=== PATIENT | male | born 1955 | race American Indian/Alaskan Native ===

== ENCOUNTER 2017-12-06 16:58 | Emergency (ER) | payer SELFPAY ==
[~2017-12-06 16:58] MED LIST: Sodium Chloride 0.9% 10 ML Syringe FLUSH PRN
[2017-12-06 17:35] LABS: CHLORIDE,CL 106 mmol/L (101-111); SODIUM,NA 139 mmol/L (135-145)
[2017-12-06] MEDS ORDERED: Iopamidol 755 Mg/ML 100 ML Bottle IVPUSH ONE (17:46)
[2017-12-06] MEDS ORDERED: Sodium Chloride 0.9% 500 ML IV SCH (18:00)
--- NOTE | 2017-12-06 18:54 | EDM.PDOC ---
"Scribed by Merna Adam 12/06/17 2170 for Alejandro Viramontes MD <Danielle Laurent - Last Filed: 12/07/17 02:31> ED HPI GENERAL MEDICAL PROBLEM - General Chief Complaint: Cardiovascular Problem Stated Complaint: medical per ER nurse. In by amb Time Seen by Provider: 12/06/17 17:00 - Related Data Allergies Allergy/AdvReac Type Severity Reaction Status Date / Time No Known Allergies Allergy Verified 12/06/17 16:59 Home Meds: Home Meds . [Unable to Verify Home Med List] 12/06/17 [History] Course - Vital Signs Last Recorded V/S: Last Vital Signs Temp 37.2 C 12/06/17 17:01 Pulse 72 12/06/17 17:01 Resp 16 12/06/17 17:01 BP 126/81 12/06/17 17:01 Pulse Ox 98 12/06/17 17:01 - Orders/Labs/Meds Orders: Active Orders 24 hr Category Date Time Status EKG 12 Lead [EKG Documentation Completion] [RC] STAT Care 12/06/17 16:59 Active Peripheral IV Care [RC] . DIRECTED Care 12/06/17 16:59 Active Peripheral IV Insertion Adult [OM.PC] Stat Oth 12/06/17 16:59 Ordered Labs: Laboratory Tests 12/06/17 12/06/17 12/06/17 Range/Units 17:09 17:09 17:09 WBC 7.3 (5.0-10.0) 10^3/uL RBC 4.88 (4.6-6.2) 10^6/uL Hgb 14.4 (14.0-18.0) g/dL Hct 42.0 (40.0-54.0) % MCV 86.1 (80-100) fL MCH 29.5 (27.0-34.0) pg MCHC 34.3 (33.0-35.0) g/dL Plt Count 197 (150-450) 10^3/uL Neut % (Auto) 70.3 (42.2-75.2) % Lymph % (Auto) 16.7 L (20.5-50.1) % [place] % (Auto) 10.2 H (2-8) % Eos % (Auto) 2.1 (1.0-3.0) % Baso % (Auto) 0.7 (0.0-1.0) % PT 9.8 (9.0-12.0) SEC INR 1.0 (0.9-1.2) APTT 28.2 (22.0-34.0) SEC D-Dimer, Quantitative 1120 H (0-400) ng/mL Sodium 139 (135-145) mmol/L Potassium 3.9 (3.6-5.0) mmol/L Chloride 106 (101-111) mmol/L Carbon Dioxide 23.0 (21.0-31.0) mmol/L Anion Gap 13.9 BUN 19 H (7-18) mg/dL Creatinine 1.3 (0.6-1.3) mg/dL Est Cr Clr Drug Dosing 54.53 mL/min Estimated GFR (MDRD) 56 BUN/Creatinine Ratio 14.61 Glucose 122 H (74-105) mg/dL Calcium 9.3 (8.4-10.2) mg/dl Total Bilirubin 0.9 (0.2-1.0) mg/dL AST 30 (10-42) IU/L ALT 25 (10-60) IU/L Alkaline Phosphatase 69 (42-121) IU/L Troponin I < 0.02 (0.00-0.02) ng/ml B-Natriuretic Peptide 40 (0-100) pg/ml Total Protein 7.6 (6.7-8.2) g/dl Albumin 4.5 (3.2-5.5) g/dl Globulin 3.1 Albumin/Globulin Ratio 1.45 Meds: Medications Discontinued Medications Generic Name Dose Route Start Last Admin Trade Name Freq PRN Reason Stop Dose Admin Sodium Chloride 500 mls @ 500 mls/hr 12/06/17 18:00 12/06/17 19:38 Normal Saline IV 500 mls/hr .BOLUS NIKKIE Administration Iopamidol 100 ml 12/06/17 17:46 12/06/17 17:55 Isovue-370 (76%) IVPUSH 12/06/17 17:47 100 ml ONETIME ONE Administration Sodium Chloride 10 ml 12/06/17 16:58 12/06/17 17:14 Saline Flush FLUSH 10 ml ASDIRECTED PRN Administration Keep Vein Open - Re-Assessments/Exams Free Text/Narrative Re-Assessment/Exam: 12/06/17 1900 I took patient care over from Dr. Viramontes at this time. Discussed with the patient the need to transfer him to a higher level of care for cardiology follow up. He states agreement and understanding. Dr. Ulloa at [facility] in agreed to accept the patient for transfer. Departure - Departure Time of Disposition: 20:21 Disposition: DC/Tfer to Acute Hospital 02 Reason for Transfer *Q: Other Condition: Fair Clinical Impression: Acute coronary syndrome Syncope Qualifiers: Syncope type: unspecified Qualified Code(s): R55 - Syncope and collapse Chest pain Qualifiers: Chest pain type: unspecified Qualified Code(s): R07.9 - Chest pain, unspecified Aortic aneurysm Qualifiers: Aortic location: thoracic aorta Presence of rupture: without rupture Qualified Code(s): I71.2 - Thoracic aortic aneurysm, without rupture Referrals: PCP,None [Primary Care Provider] - Forms: ED Department Discharge, Interfacility Transfer EMTALA - My Orders Last 24 Hours: My Active Orders 12/06/17 16:59 EKG 12 Lead [EKG Documentation Completion] [RC] STAT Peripheral IV Care [RC] . DIRECTED Peripheral IV Insertion Adult [OM.PC] Stat - Assessment/Plan Last 24 Hours: My Active Orders 12/06/17 16:59 EKG 12 Lead [EKG Documentation Completion] [RC] STAT Peripheral IV Care [RC] . DIRECTED Peripheral IV Insertion Adult [OM.PC] Stat <Alejandro Viramontes - Last Filed: 12/07/17 09:15> ED HPI GENERAL MEDICAL PROBLEM - General Source of Information: Reports: Patient, EMS, EMS Notes Reviewed, RN, RN Notes Reviewed History Limitations: Reports: No Limitations - History of Present Illness INITIAL COMMENTS - FREE TEXT/NARRATIVE: Arrives by ambulance with c/o chest pain that began this morning and was recurrent throughout the day. Pt drove here from [facility] recently to attend his brother's . This evening the pain returned and was accompanied by mild shortness of breath, so he took a single Nitro. 0.4mg SL and promptly had a syncopal episode. Pt currently feels very mild pain in the left chest. Denies cough, fever, chills, N/V, or radiating pain. Onset: Today Duration: Intermittent, Waxing/Waning Location: Reports: Chest Quality: Reports: Ache Severity: Severe Improves with: Reports: None Worsens with: Reports: None Associated Symptoms: Reports: No Other Symptoms Treatments HUMAN RESOURCE CONSULTANT: Reports: Aspirin, EKG, IV/IO, Nitroglycerin Past Medical History Cardiovascular History: Reports: CAD, Heart Failure, Other (See Below) (aortic valve disease. Aorticdissection.) - Past Surgical History Cardiovascular Surgical History: Reports: Valve Replacement (aortic), Other ( See Below) ([id number]. Aortic dissection repair.) Social & Family History - Family History Cardiac: Reports: CAD - Tobacco Use Smoking Status *Q: Current Some Day Smoker Tobacco Use Within Last Twelve Months: Cigarettes - Alcohol Use Alcohol Use History: No - Recreational Drug Use Recreational Drug Use: No - Living Situation & Occupation Living situation: Reports: with Family ED ROS GENERAL - Review of Systems Review Of Systems: ROS reveals no pertinent complaints other than HPI. ED EXAM, GENERAL - Physical Exam Exam: See Below Exam Limited By: No Limitations General Appearance: Alert, WD/WN, No Apparent Distress Eye Exam: Bilateral Eye: Normal Inspection Ears: Normal External Exam, Normal Canal, Hearing Grossly Normal, Normal TMs Nose: Normal Inspection, Normal Mucosa, No Blood Throat/Mouth: Normal Inspection Head: Atraumatic, Normocephalic Neck: Normal Inspection, Supple, Non-Tender, Full Range of Motion, Other (NoJVD. ) Respiratory/Chest: No Respiratory Distress, Lungs Clear, Normal Breath Sounds, No Accessory Muscle Use, Chest Non-Tender Cardiovascular: Regular Rate, Rhythm, Systolic Murmur (III/IV) GI/Abdominal: No Abnormal Bruit, Other (benign obese. ) (Male) Exam: Deferred Rectal (Males) Exam: Deferred Back Exam: Normal Inspection, Full Range of Motion, NT Extremities: No Pedal Edema Neurological: Alert, Oriented, CN II-XII Intact, Normal Cognition, Normal Gait, Normal Reflexes, No Motor/Sensory Deficits Psychiatric: Normal Affect, Normal Mood Skin Exam: Warm, Dry, Intact, Normal Color, No Rash EKG INTERPRETATION EKG Date: 12/06/17 Time: 17:03 Rhythm: Other (sinus rhythm) Rate (Beats/Min): 71 P-Wave: Present QRS: RBBB (LAFB. Left ventricular hypertrophy) ST-T: Other (nonspecific changes.) QT: Normal DE/PQ Interval: normal DE interval. Comparison: NA - No Prior EKG Course - Vital Signs Last Recorded V/S: Last Vital Signs Temp 37.2 C 12/06/17 17:01 Pulse 72 12/06/17 17:01 Resp 16 12/06/17 17:01 BP 126/81 12/06/17 17:01 Pulse Ox 98 12/06/17 17:01 - Orders/Labs/Meds Labs: Laboratory Tests 12/06/17 12/06/17 12/06/17 Range/Units 17:09 17:09 17:09 WBC 7.3 (5.0-10.0) 10^3/uL RBC 4.88 (4.6-6.2) 10^6/uL Hgb 14.4 (14.0-18.0) g/dL Hct 42.0 (40.0-54.0) % MCV 86.1 (80-100) fL MCH 29.5 (27.0-34.0) pg MCHC 34.3 (33.0-35.0) g/dL Plt Count 197 (150-450) 10^3/uL Neut % (Auto) 70.3 (42.2-75.2) % Lymph % (Auto) 16.7 L (20.5-50.1) % [place] % (Auto) 10.2 H (2-8) % Eos % (Auto) 2.1 (1.0-3.0) % Baso % (Auto) 0.7 (0.0-1.0) % PT 9.8 (9.0-12.0) SEC INR 1.0 (0.9-1.2) APTT 28.2 (22.0-34.0) SEC D-Dimer, Quantitative 1120 H (0-400) ng/mL Sodium 139 (135-145) mmol/L Potassium 3.9 (3.6-5.0) mmol/L Chloride 106 (101-111) mmol/L Carbon Dioxide 23.0 (21.0-31.0) mmol/L Anion Gap 13.9 BUN 19 H (7-18) mg/dL Creatinine 1.3 (0.6-1.3) mg/dL Est Cr Clr Drug Dosing 54.53 mL/min Estimated GFR (MDRD) 56 BUN/Creatinine Ratio 14.61 Glucose 122 H (74-105) mg/dL Calcium 9.3 (8.4-10.2) mg/dl Total Bilirubin 0.9 (0.2-1.0) mg/dL AST 30 (10-42) IU/L ALT 25 (10-60) IU/L Alkaline Phosphatase 69 (42-121) IU/L Troponin I < 0.02 (0.00-0.02) ng/ml B-Natriuretic Peptide 40 (0-100) pg/ml Total Protein 7.6 (6.7-8.2) g/dl Albumin 4.5 (3.2-5.5) g/dl Globulin 3.1 Albumin/Globulin Ratio 1.45 Meds: Medications Discontinued Medications Generic Name Dose Route Start Last Admin Trade Name Freq PRN Reason Stop Dose Admin Sodium Chloride 500 mls @ 500 mls/hr 12/06/17 18:00 12/06/17 19:38 Normal Saline IV 500 mls/hr .BOLUS NIKKIE Administration Iopamidol 100 ml 12/06/17 17:46 12/06/17 17:55 Isovue-370 (76%) IVPUSH 12/06/17 17:47 100 ml ONETIME ONE Administration Sodium Chloride 10 ml 12/06/17 16:58 12/06/17 17:14 Saline Flush FLUSH 10 ml ASDIRECTED PRN Administration Keep Vein Open - Radiology Interpretation Free Text/Narrative:: Chest x-ray: Sternotomy wires. No acute process. See rad report. Chest CT: EXAM: CT Chest With Intravenous Contrast EXAM DATE/TIME: 12/06/2017 6:12 PM CLINICAL HISTORY: 62 years old, male; Chest pain, syncope, D-dimer 1120; Prior surgery TECHNIQUE: Axial computed tomography images of the chest with intravenous contrast. All CT scans at this facility use one or more dose reduction techniques, viz.: automated exposure control; ma/kV adjustment per patient size (including targeted exams where dose is matched to indication; i.e. head); or iterative reconstruction technique. Coronal and sagittal reformatted images were created and reviewed. CONTRAST: 90 mL [id number] administered intravenously. COMPARISON: Tech Note: No prior exams for this patient. FINDINGS: Normal caliber, contours, and IV contrast opacification of the central pulmonary arteries and their segmental and subsegmental branch vessels, without evidence for intraluminal soft tissue filling defect which would suggest pulmonary embolism. There are postop changes suggesting repair of a prior ascending thoracic aortic aneurysm or possibly dissection, with apparent peripheral ascending thoracic aortic hyperdense graft material, an eccentric crescentic hypodensity which may be mural thrombus or additional graft material , a prosthetic aortic valve, and sternal cerclage wires; correlate clinically and with surgical history. The ascending thoracic aorta is enlarged, measuring up to 4.7 cm in diameter, but there is no active thoracic aortic dissection. The heart and great vessels are otherwise unremarkable. No pericardial effusion. No mediastinal, hilar, or axillary lymphadenopathy. BATSHEVA LEON | Final Radiology Report CONFIDENTIALITY STATEMENT This report is intended only for use by the referring physician, and only in accordance with law. If you received this in error, call [phone]. Page 2 of 2 The lungs are unremarkable, without soft tissue pulmonary nodule, parenchymal consolidation, interstitial disease, pleural effusion, or pneumothorax. Pulmonary vascularity and tracheobronchial airways are normal. There is mild thoracic spondylosis and minimal scoliosis. The thoracic and visualized upper abdominal structures are otherwise unremarkable. IMPRESSION: --Postop changes suggesting repair of a prior ascending thoracic aortic aneurysm or possibly dissection, with apparent peripheral ascending thoracic aortic hyperdense graft material, an eccentric crescentic hypodensity which may be mural thrombus or additional graft material , and a prosthetic aortic valve, and the ascending thoracic aorta is enlarged, measuring up to 4.7 cm in diameter, without active thoracic aortic dissection; correlate clinically and with surgical history, and recommend direct comparison with existing prior thoracic CT or CTA imaging. --No pulmonary embolism. Thank you for allowing us to participate in the care of your patient. Dictated and Authenticated by: Gómez Carvajal MD 12/06/2017 7:19 PM Central Time ([place] & [place]) - Re-Assessments/Exams Free Text/Narrative Re-Assessment/Exam: 12/06/17 18:51 Transferred care of pt to Danielle Laurent [facility] at 1900HR shift change with CT chest for PE r/o pending. Departure - Departure Condition: Serious, Undetermined - My Orders Last 24 Hours: My Active Orders 12/06/17 16:59 EKG 12 Lead [EKG Documentation Completion] [RC] STAT Peripheral IV Care [RC] . DIRECTED Peripheral IV Insertion Adult [OM.PC] Stat - Assessment/Plan Last 24 Hours: My Active Orders 12/06/17 16:59 EKG 12 Lead [EKG Documentation Completion] [RC] STAT Peripheral IV Care [RC] . DIRECTED Peripheral IV Insertion Adult [OM.PC] Stat I have read and agree with the documentation that has been completed regarding this visit. By signing this record, I attest that the documentation was completed in my physical presence and is an accurate record of the encounter."
--- NOTE | 2017-12-10 13:15 | EKG ---
12/06/2017 - BATSHEVA LEON - TIME: 5:03 p.m. EKG shows sinus rhythm at 71. [facility] /[id number]
== END 2017-12-06 20:16 ==
LOC: DL.ED 16:58
DX: I71.2 Thoracic aortic aneurysm, without rupture (principal); I24.9 Acute ischemic heart disease, unspecified; R55 Syncope and collapse; I10 Essential (primary) hypertension; F17.210 Nicotine dependence, cigarettes, uncomplicated
CPT/HCPCS: 36415; 71045; 71260; 80053; 83880; 84484; 85025; 85379; 85610; 85730; 93005; 96360; 99285; J7040; J7050; Q9967; 93010